=== PATIENT | male | born 2000 | race Caucasian/White ===

== ENCOUNTER 2018-04-24 19:28 | Emergency (ER) | payer OTHER, MEDICAID ==
[2018-04-24 19:32] VITALS: BP 134/82; PULSE 82; RESP 16; TEMP 97.6; O2SAT 100
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
== END 2018-04-24 20:38 | disposition home or self-care (01) ==
LOC: H.ER 19:28
DX: M25.551 Pain in right hip (principal); Y93.55 Activity, bike riding; V13.4XXA Pedal cycle driver injured in collision with car, pick-up truck or van in traffic accident, initial encounter; J45.909 Unspecified asthma, uncomplicated; Z88.0 Allergy status to penicillin